=== PATIENT | female | born 1955 | race Asian ===

== ENCOUNTER 2018-08-28 11:27 | Emergency (ER) | payer OTHER ==
[~2018-08-28] VITALS: Ht 157.5 cm; Wt 69.1 kg
[~2018-08-28 11:27] MED LIST: INSU100C5 SQ; INSU100I4 SQ; LISI-313 PO; MTF1000T PO; NIAC500T6 PO; REPA2TAB23 PO
[2018-08-28 11:33] VITALS: Ht 157.5 cm; Wt 69.1 kg
[2018-08-28] MEDS ORDERED: SOD CHLORIDE 0.9% 1,000 ML IV STA (11:42)
[2018-08-28] MEDS ORDERED: morphine 4 MG/ML VIAL IV STA (11:42)
[2018-08-28] MEDS ORDERED: ONDANSETRON 4 MG INJ IV STA (11:42)
--- NOTE | 2018-08-28 12:26 | ERD ---
ER Documentation Chief Complaint Chief Complaint LLQ AB DULL PAIN WITH N/V/D EMESIS [id number] HPI This 63-year-old female presents for evaluation of 1 day of left lower quadrant pain, associated with nausea and vomiting. Patient also endorses dysuria, she denies fever, she has no chest pain or shortness of breath, she has no prior h istory of any GI surgeries. Pain is described as dull and intermittent, without any alleviating or aggravating factors. ROS All systems reviewed and are negative except as per history of present illness. Medications Home Meds Reported Medications Repaglinide* (Prandin*) 2 Mg Tablet, 2 MG PO 07/23/13 Niacinamide* (Niacinamide*) 500 Mg Tablet, 500 MG PO 07/23/13 Metformin* (Glucophage*) 1,000 Mg Tablet, 1000 MG PO 07/23/13 Lisinopril* (Lisinopril*) 5 Mg Tablet, 5 MG PO 07/23/13 Insulin Glargine,Hum.rec.anlog (Lantus) 100 U/Ml Cartridge, 0 SQ 07/23/13 Insulin Npl/Insulin Lispro (Humalog Mix 50-50 Pen) 100 Units/Ml Pen, 0 SQ 07/23/13 Allergies Allergies: Coded Allergies: aspirin (Verified Allergy, Mild, 07/23/13) PMhx/Soc Medical and Surgical Hx: pt denies Medical Hx History of Surgery: Yes Anesthesia Reaction: No Hx Neurological Disorder: No Hx Respiratory Disorders: No Hx Cardiac Disorders: No (cholesterol) Hx Psychiatric Problems: No Hx Miscellaneous Medical Probl: Yes (dm, ) Hx Alcohol Use: No Hx Substance Use: No Hx Tobacco Use: No Smoking Status: Never smoker Physical Exam Vitals Vital Signs Date Temp Pulse Resp B/P (MAP) Pulse Ox O2 O2 Flow FiO2 Time Delivery Rate 08/28/18 98 18 112/62 97 Room Air 13:42 (79) 08/28/18 110 18 146/67 97 Room Air 11:50 (93) 08/28/18 99.6 116 20 164/117 100 11:33 (133) Physical Exam Const: No acute distress Head: Atraumatic Eyes: Normal Conjunctiva ENT: Normal External Ears, Nose and Mouth. Neck: Full range of motion. No meningismus. Resp: Clear to auscultation bilaterally Cardio: Regular rate and rhythm, no murmurs Abd: Soft, non tender, non distended, there is no rebound or guarding, negative McBurney's point tenderness. Normal bowel sounds Skin: No petechiae or rashes Back: No midline or flank tenderness Ext: No cyanosis, or edema Neur: Awake and alert Psych: Normal Mood and Affect Result Diagram: 08/28/18 1205 08/28/18 1205 Results 24 hrs Laboratory Tests Test 08/28/18 11:53 08/28/18 12:05 Urine Color YELLOW Urine Clarity TURBID Urine pH 5.0 Urine Specific [place] 1.023 Urine Ketones 1+ mg/dL Urine Nitrite NEGATIVE mg/dL Urine Bilirubin NEGATIVE mg/dL Urine Urobilinogen NEGATIVE mg/dL Urine Leukocyte Esterase 3+ Zaria/ul Urine Microscopic RBC > 182 /HPF Urine Microscopic WBC > 182 /HPF Urine Squamous Epithelial Cells FEW /HPF Urine Bacteria FEW /HPF Urine Mucus FEW /HPF Urine Yeast (Budding) FEW /HPF Urine Hemoglobin 3+ mg/dL Urine Glucose 3+ mg/dL Urine Total Protein 2+ mg/dl White Blood Count 7.6 10^3/ul Red Blood Count 4.71 10^6/ul Hemoglobin 14.7 g/dl Hematocrit 45.6 % Mean Corpuscular Volume 96.8 fl Mean Corpuscular Hemoglobin 31.2 pg Mean Corpuscular Hemoglobin Concent 32.2 g/dl Red Cell Distribution Width 13.4 % Platelet Count 205 10^3/UL Mean Platelet Volume 11.0 fl Immature Granulocytes % 0.300 % Neutrophils % % Segmented Neutrophils % (Manual) 69 % Band Neutrophils % (Manual) 18 % Lymphocytes % % Lymphocytes % (Manual) 4 % Monocytes % % Monocytes % (Manual) 6 % Eosinophils % % Eosinophils % (Manual) 1 % Basophils % % Basophils % (Manual) 1 % Myelocytes % (Manual) 1 % Nucleated Red Blood Cells % 0.0 /100WBC Immature Granulocytes # 0.020 10^3/ul Neutrophils # 10^3/ul Neutrophils # (Manual) 5.3 10^3/ul Band Neutrophils # 1.3 10^3/ul Lymphocytes (Manual) 0.3 10^3/ul Lymphocytes # 10^3/ul Monocytes # 10^3/ul Monocytes # (Manual) 0.4 10^3/ul Eosinophils # 10^3/ul Basophils # 10^3/ul Basophils # (Manual) 0.0 10^3/ul Myelocytes # 0.0 10^3/ul Nucleated Red Blood Cells # 10^3/ul Platelet Estimate NORMAL Polychromasia 3+ Anisocytosis 3+ Macrocytosis 3+ Sodium Level 141 mmol/L Potassium Level 4.5 mmol/L Chloride Level 106 mmol/L Carbon Dioxide Level 22 mmol/L Anion Gap 13 Blood Urea Nitrogen 32 mg/dl Creatinine 1.48 mg/dl Est Glomerular Filtrat Rate mL/min 36 mL/min Glucose Level 189 mg/dl Calcium Level 10.1 mg/dl Total Bilirubin 0.8 mg/dl Direct Bilirubin 0.00 mg/dl Indirect Bilirubin 0.8 mg/dl Aspartate Amino Transf (AST/SGOT) 44 IU/L Alanine Aminotransferase (ALT/SGPT) 38 IU/L Alkaline Phosphatase 196 IU/L Troponin I < 0.012 ng/ml Total Protein 8.6 g/dl Albumin 4.5 g/dl Globulin 4.10 g/dl Albumin/Globulin Ratio 1.09 Lipase 64 U/L Current Medications Medications Dose Sig/Sylvia Start Time Status Last (Trade) Ordered Route PRN Stop Time Admin Dose Reason Admin Sodium 1,000 ml @ Q1H STAT 08/28/18 DC 08/28/18 Chloride 1,000 mls/hr IV 11:42 12:42 08/28/18 12:41 Morphine 4 mg ONCE STAT 08/28/18 DC 08/28/18 Sulfate IV 11:42 12:43 (morphine) 08/28/18 11:44 Ondansetron 4 mg ONCE STAT 08/28/18 DC 08/28/18 HCl (Zofran IV 11:42 12:42 Inj) 08/28/18 11:44 Ceftriaxone 50 ml @ ONCE STAT 08/28/18 DC Sodium 100 mls/hr IVPB 13:01 08/28/18 13:30 Procedures/MDM This 63-year-old female who presents for evaluation of left lower quadrant pain, associated with nausea. Exam reveals no peritoneal signs on abdominal exam, patient had CT abdomen pelvis performed which showed no acute intra-abdominal findings, negative for diverticulitis, but did show left perinephric stranding, with left mild hydroureter, this is suspicious for pyelonephritis, with possible passed stone, her urinalysis was consistent with urinary tract infection, she is given a dose of ceftriaxone in the ED, she will be discharged on Keflex, she had no worsening in the ED, at discharge she was in no acute distress EKG: Rate/Rhythm: Normal Sinus Rhythm QRS, ST, T-waves: No changes consistent w/ acute ischemia Impression: No evidence of ischemia or arrhythmia Departure Diagnosis: Primary Impression: Pyelonephritis Condition: Stable VIV FINCH MD Aug 28, 2018 12:26
[2018-08-28] MEDS ORDERED: CEFTRIAXONE 1 GM/50 ML (PMX) 50 ML IVPB STA (13:01)
[2018-08-28] MEDS ORDERED: CEPH-443 PO (13:57)
[2018-08-28 15:00] VITALS: BP 110/65; PULSE 92; RESP 18
== END 2018-08-28 15:01 | disposition home or self-care (01) ==
LOC: E/R 11:27
DX: N12 Tubulo-interstitial nephritis, not specified as acute or chronic (principal); E11.9 Type 2 diabetes mellitus without complications; Z79.4 Long term (current) use of insulin
CPT/HCPCS: 74176; 80053; 81001; 83690; 84484; 85025; 87086; 93005; J0696; J2270; J2405; J7030; 36415; 96374; 96375

== ENCOUNTER 2018-08-31 13:37 | Emergency (ER) | payer OTHER ==
[~2018-08-31] VITALS: Ht 167.6 cm; Wt 70.8 kg
[~2018-08-31 13:37] MED LIST changes: +CEPH-443 PO
[2018-08-31 14:58] VITALS: Ht 167.6 cm; Wt 70.8 kg
[2018-08-31] MEDS ORDERED: SOD CHLORIDE 0.9% 1,000 ML IV STA ×2 (16:21→17:57)
[2018-08-31] MEDS ORDERED: IBUPROFEN 600 MG TAB PO ONE (17:00)
[2018-08-31] MEDS ORDERED: CIPR500T4 PO (17:06)
--- NOTE | 2018-08-31 17:22 | ERD ---
ER Documentation Chief Complaint Chief Complaint LUQ abdominal pain with diarrhea and weakness HPI 63-year-old female presenting with left lower abdominal pain with diarrhea that started after starting Keflex. She has taken the Keflex for the past 3 days for pyelonephritis that she was diagnosed with on August 28. She states that her urinary symptoms have been improving as has her left lower quadrant pain. However she is complaining of general weakness from her diarrhea. The diarrhea is nonbloody. She is having about 2-3 episodes a day. No fevers or chills. No nausea or vomiting. ROS All systems reviewed and are negative except as per history of present illness. Medications Home Meds Active Scripts Ciprofloxacin Hcl* (Ciprofloxacin Hcl*) 500 Mg Tablet, 500 MG PO BID for 7 Days, TAB Prov:MARCO VEGA MD 08/31/18 Cephalexin* (Keflex*) 500 Mg Capsule, 500 MG PO QID for 7 Days, CAP Prov:VIV FINCH MD 08/28/18 Reported Medications Repaglinide* (Prandin*) 2 Mg Tablet, 2 MG PO 07/23/13 Niacinamide* (Niacinamide*) 500 Mg Tablet, 500 MG PO 07/23/13 Metformin* (Glucophage*) 1,000 Mg Tablet, 1000 MG PO 07/23/13 Lisinopril* (Lisinopril*) 5 Mg Tablet, 5 MG PO 07/23/13 Insulin Glargine,Hum.rec.anlog (Lantus) 100 U/Ml Cartridge, 0 SQ 07/23/13 Insulin Npl/Insulin Lispro (Humalog Mix 50-50 Pen) 100 Units/Ml Pen, 0 SQ 07/23/13 Allergies Allergies: Coded Allergies: aspirin (Verified Allergy, Mild, 07/23/13) PMhx/Soc History of Surgery: Yes Anesthesia Reaction: No Hx Neurological Disorder: No Hx Respiratory Disorders: No Hx Cardiac Disorders: No (cholesterol) Hx Psychiatric Problems: No Hx Miscellaneous Medical Probl: Yes (DM, KIDNEY STONES, PYELONEPHRITIS) Hx Alcohol Use: No Hx Substance Use: No Hx Tobacco Use: No Smoking Status: Never smoker FmHx noncontributory Physical Exam Vitals Vital Signs Date Temp Pulse Resp B/P (MAP) Pulse Ox O2 O2 Flow FiO2 Time Delivery Rate 08/31/18 98.1 68 18 140/71 97 14:58 (94) Physical Exam Const: No acute distress Head: Atraumatic Eyes: Normal Conjunctiva ENT: Normal External Ears, Nose and Mouth. Dry mucous membranes Neck: Full range of motion. No meningismus. Resp: Clear to auscultation bilaterally Cardio: Regular rate and rhythm, no murmurs Abd: Soft, mild left lower quadrant tenderness, non distended. Normal bowel sounds Skin: No petechiae or rashes Back: No midline or flank tenderness Ext: No cyanosis, or edema Neur: Awake and alert Psych: Normal Mood and Affect Result Diagram: 08/31/18 1622 08/31/18 1717 Results 24 hrs Laboratory Tests Test 08/31/18 16:22 08/31/18 17:17 White Blood Count 10.7 10^3/ul Red Blood Count 4.57 10^6/ul Hemoglobin 14.0 g/dl Hematocrit 42.1 % Mean Corpuscular Volume 92.1 fl Mean Corpuscular Hemoglobin 30.6 pg Mean Corpuscular Hemoglobin Concent 33.3 g/dl Red Cell Distribution Width 14.7 % Platelet Count 303 10^3/UL Mean Platelet Volume 12.4 fl Immature Granulocytes % 0.700 % Neutrophils % % Segmented Neutrophils % (Manual) 64 % Band Neutrophils % (Manual) 5 % Lymphocytes % % Lymphocytes % (Manual) 19 % Monocytes % % Monocytes % (Manual) 7 % Eosinophils % % Eosinophils % (Manual) 4 % Basophils % % Myelocytes % (Manual) 1 % Nucleated Red Blood Cells % 0.0 /100WBC Immature Granulocytes # 0.070 10^3/ul Neutrophils # 10^3/ul Neutrophils # (Manual) 6.9 10^3/ul Band Neutrophils # 0.5 10^3/ul Lymphocytes (Manual) 2.0 10^3/ul Lymphocytes # 10^3/ul Monocytes # 10^3/ul Monocytes # (Manual) 0.7 10^3/ul Eosinophils # 10^3/ul Basophils # 10^3/ul Myelocytes # 0.1 10^3/ul Nucleated Red Blood Cells # 10^3/ul Platelet Estimate NORMAL Polychromasia 1+ Poikilocytosis 1+ Macrocytosis 1+ Urine Color YELLOW Urine Clarity SLIGHTLY CLOUDY Urine pH 5.0 Urine Specific [place] 1.015 Urine Ketones NEGATIVE mg/dL Urine Nitrite NEGATIVE mg/dL Urine Bilirubin NEGATIVE mg/dL Urine Urobilinogen NEGATIVE mg/dL Urine Leukocyte Esterase 1+ Zaria/ul Urine Microscopic RBC 100 /HPF Urine Microscopic WBC 76 /HPF Urine Hemoglobin 3+ mg/dL Urine Glucose 3+ mg/dL Urine Total Protein NEGATIVE mg/dl Sodium Level 140 mmol/L Potassium Level 5.1 mmol/L Chloride Level 109 mmol/L Carbon Dioxide Level 18 mmol/L Anion Gap 13 Blood Urea Nitrogen 45 mg/dl Creatinine 1.74 mg/dl Est Glomerular Filtrat Rate mL/min 30 mL/min Glucose Level 138 mg/dl Calcium Level 9.0 mg/dl Total Bilirubin 0.1 mg/dl Direct Bilirubin 0.00 mg/dl Indirect Bilirubin 0.1 mg/dl Aspartate Amino Transf (AST/SGOT) 43 IU/L Alanine Aminotransferase (ALT/SGPT) 43 IU/L Alkaline Phosphatase 284 IU/L Total Protein 7.8 g/dl Albumin 3.7 g/dl Globulin 4.10 g/dl Albumin/Globulin Ratio 0.90 Lipase 90 U/L Current Medications Medications Dose Sig/Sylvia Start Time Status Last (Trade) Ordered Route PRN Stop Time Admin Dose Reason Admin Sodium 1,000 ml @ Q1H STAT 08/31/18 DC 08/31/18 Chloride 1,000 mls/hr IV 16:21 16:50 08/31/18 17:20 Ibuprofen 600 mg ONCE ONCE 08/31/18 DC 08/31/18 (Motrin) PO 17:00 16:57 08/31/18 17:01 Sodium 1,000 ml @ Q1H STAT 08/31/18 08/31/18 Chloride 1,000 mls/hr IV 17:57 18:13 08/31/18 18:56 Procedures/MDM EMERGENT LABS AND DIAGNOSTIC STUDIES: Lab Results above were reviewed and interpreted by me. CBC: no anemia or evidence of infection CMP: Elevated BUN and creatinine, likely secondary to dehydration. Increased from last visit 3 days ago. No evidence of electrolyte abnormality, hy poglycemia liver failure, or biliary obstruction Lipase: no evidence of pancreatitis UA: evidence of infection 12-lead EKG was interpreted by Sweetie Vega MD: Normal Sinus Rhythm Normal axis Normal intervals No acute ST or T wave changes suggestive of acute ischemia or STEMI. Initial Nursing notes reviewed. Previous Medical Records requested via the Electronic Health Record. EMERGENCY DEPARTMENT COURSE / MEDICAL DECISION MAKING: Patient presenting with generalized weakness likely secondary to antibiotic associated diarrhea. She is hemodynamically stable and afebrile. It seems that her antibiotics are working for her urinary infection. However given the diarrhea, I will change antibiotics to ciprofloxacin for her pyelonephritis. I also recommended probiotics and increased oral hydration. 2 L of IV fluids was given here. Labs showed evidence of acute on chronic kidney insufficiency. I spoke with her primary care doctor's office with the doctor on-call, Dr. Zhu. He states that the patient may be discharged and they will follow-up closely outpatient. I discussed with the patient her lab results and recommended follow-up with PCP in 2 days. Patient feels comfortable with this plan. Advised increase oral hydration. return precautions were discussed. Patient's blood pressure was elevated (>120/80) but appears stable without evidence of hypertensive emergency or urgency. The patient was counseled about the risks of hypertension and urged to pursue outpatient monitoring and therapy within a week with their primary care physician. Departure Diagnosis: Primary Impression: Acute weakness Additional Impressions: Antibiotic-associated diarrhea Dehydration Condition: Stable Patient Instructions: Dehydration, Diarrhea, Unk Cause (Adult) Report Pendg Additional Instructions: Make sure you buy probiotics and take daily for your diarrhea. Return to the ER for any worsening symptoms. Make sure you stay well-hydrated. Stop taking the Keflex and start taking the ciprofloxacin. MARCO VEGA MD Aug 31, 2018 17:22
[2018-08-31 18:45] VITALS: PULSE 72
[2018-08-31 19:27] VITALS: BP 120/58; RESP 20
== END 2018-08-31 19:30 | disposition home or self-care (01) ==
LOC: E/R 13:37
DX: T65.891A Toxic effect of other specified substances, accidental (unintentional), initial encounter (principal); E86.0 Dehydration; K52.1 Toxic gastroenteritis and colitis; E11.9 Type 2 diabetes mellitus without complications; T36.1X5A Adverse effect of cephalosporins and other beta-lactam antibiotics, initial encounter; Z79.4 Long term (current) use of insulin
CPT/HCPCS: 36415; 80053; 81001; 83690; 85025; 93005; 96360; 96361; 99284; J7030